=== PATIENT | female | born 1960 | race Native Hawaiian/Other Pacific Islander ===

== ENCOUNTER 2022-01-23 14:26 | Inpatient (IN) | payer SELFPAY ==
[~2022-01-23] VITALS: Ht 157.5 cm; Wt 71.4 kg
[2022-01-23 15:54] LABS: BASOPHILS % (AUTO) 0 % (0-10); EOSINOPHILS # (AUTO) 0.1 10^3/uL (0.0-0.3); EOSINOPHILS % (AUTO) 1 % (0-10); HEMATOCRIT 33 % (35-52); HEMOGLOBIN 11.1 g/dL (11.5-16.0); LYMPHOCYTES # (AUTO) 1.7 10^3/uL (1.0-4.0); LYMPHOCYTES % (AUTO) 10 % (12-44); MEAN CORPUSCULAR HEMOGLOBIN 29 pg (25-34); MEAN CORPUSCULAR HGB CONC 33 g/dL (32-36); MEAN CORPUSCULAR VOLUME 87 fL (80-99); MEAN PLATELET VOLUME 10.3 fL (9.0-12.2); MONOCYTES # (AUTO) 0.9 10^3/uL (0.0-1.0); MONOCYTES % (AUTO) 5 % (0-12); NEUTROPHILS # (AUTO) 14.9 10^3/uL (1.8-7.8); NEUTROPHILS % (AUTO) 83 % (42-75); PLATELET COUNT 447 10^3/uL (130-400); WHITE BLOOD COUNT 17.9 10^3/uL (4.3-11.0)
--- NOTE | 2022-01-23 15:54 | ED GI ---
General Chief Complaint: Dizziness/Syncope Stated Complaint: DIZZY, BODYACHES, HEADACHE Nursing Triage Note: pt ambulatory to room. pt states she has had headache, dizziness, abdomen pain "all over for two weeks and states all symptoms "come and go." pt also reports body aches and constantly having to "switch positions to have comfort." pt also reports not having a bowel movement for 4-5 days but has been passing gas Source of Information: Patient Exam Limitations: Language Barrier (Vietnamese as a second language) History of Present Illness Date Seen by Provider: Jan 23, 2022 Time Seen by Provider: 15:35 Initial Comments Patient to the ER by private conveyance with chief complaint she is having some dizziness nausea and abdominal pain off and on getting worse over the past week. She has had some subjective fevers and chills. She does not follow with a doctor nor does she have any medical problems that she is aware of. She does not have diarrhea but she is having some dysuria. She has not taken anything for the pain. She says the dizziness is worse when she lays down at night. No sore throat cough . Allergies and Home Medications Allergies Coded Allergies: No Known Drug Allergies (Unverified , 01/23/22) Patient Home Medication List Home Medication List Reviewed: Yes Review of Systems Review of Systems Constitutional: No chills, No diaphoresis EENTM: No Blurred Vision, No Double Vision Respiratory: Denies Cough, Denies Shortness of Air Cardiovascular: Denies Chest Pain, Denies Lightheadedness Gastrointestinal: See HPI, Abdominal Pain (Suprapubic); Denies Constipated, Denies Diarrhea; Nausea, Poor Fluid Intake; Denies Vomiting All Other Systems Reviewed Negative Unless Noted: Yes Past Mdorudw-Mryfmb-Bgjvtu Hx Patient Social History Tobacco Use?: No Use of E-Cig and/or Vaping dev: Yes E-Cig or Vaping type used: Nicotine Substance use?: No Alcohol Use?: No Physical Exam Vital Signs Vital Signs - First Documented 01/23/22 15:06 Temp 36.6 Pulse 105 Resp 16 B/P (MAP) 140/75 (96) Pulse Ox 98 Capillary Refill : Height/Weight/BMI Height: '" Weight: lbs. oz. kg; 29.00 BMI Method: General Appearance: WD/WN, mild distress HEENT: PERRL/EOMI, TMs normal (Otosclerosis bilaterally and small amount of clear effusion without bulging or loss of the tympanic membrane landmarks. No erythema or injection. Nontender to manipulation.), pharynx normal Neck: full range of motion, normal inspection Respiratory: lungs clear, normal breath sounds, no respiratory distress, no accessory muscle use Cardiovascular: normal peripheral pulses, regular rate, rhythm, tachycardia (105) Gastrointestinal: normal bowel sounds, soft, tenderness (Suprapubic region) Extremities: non-tender, normal inspection, normal capillary refill Neurologic/Psychiatric: alert, normal mood/affect, oriented x 3 Skin: normal color, warm/dry Focused Exam Sepsis Stage: Sepsis Possible Source: Genitouriary Lactate Level 01/23/22 17:38: Lactic Acid Level 1.54 Time of Focused Exam: 18:30 Respiratory: Lungs Clear, Normal Breath Sounds, No Accessory Muscle Use, No Respiratory Distress Cardiovascular: Regular Rate, Rhythm, No Edema, Normal Peripheral Pulses, Tachycardia (110) Capillary Refill: Less Than 3 Seconds Peripheral Pulses: 2+ Radial Pulses (R), 2+ Radial Pulses (L) Skin: normal color, warm/dry Lactic Acid Level Laboratory Tests Test 01/23/22 17:38 Lactic Acid Level 1.54 MMOL/L (0.50-2.00) Within 3hrs of presentation: Admin fluids, Admin ABX, Blood cultures prior to ABX's, Focus exam, Lactate level Progress/Results/Core Measures Results/Orders Lab Results Laboratory Tests Test 01/23/22 15:22 01/23/22 15:59 01/23/22 17:38 Range/Units White Blood Count 17.9 H 4.3-11.0 10^3/uL Red Blood Count 3.84 3.80-5.11 10^6/uL Hemoglobin 11.1 L 11.5-16.0 g/dL Hematocrit 33 L 35-52 % Mean Corpuscular Volume 87 80-99 fL Mean Corpuscular Hemoglobin 29 25-34 pg Mean Corpuscular Hemoglobin Concent 33 32-36 g/dL Red Cell Distribution Width 12.4 10.0-14.5 % Platelet Count 447 H 130-400 10^3/uL Mean Platelet Volume 10.3 9.0-12.2 fL Immature Granulocyte % (Auto) 1 % Neutrophils (%) (Auto) 83 H 42-75 % Lymphocytes (%) (Auto) 10 L 12-44 % Monocytes (%) (Auto) 5 0-12 % Eosinophils (%) (Auto) 1 0-10 % Basophils (%) (Auto) 0 0-10 % Neutrophils # (Auto) 14.9 H 1.8-7.8 10^3/uL Lymphocytes # (Auto) 1.7 1.0-4.0 10^3/uL Monocytes # (Auto) 0.9 0.0-1.0 10^3/uL Eosinophils # (Auto) 0.1 0.0-0.3 10^3/uL Basophils # (Auto) 0.0 0.0-0.1 10^3/uL Immature Granulocyte # (Auto) 0.2 H 0.0-0.1 10^3/uL Neutrophils % (Manual) 78 % Lymphocytes % (Manual) 10 % Monocytes % (Manual) 9 % Eosinophils % (Manual) 2 % Band Neutrophils 1 % Blood Morphology Comment NORMAL Prothrombin Time 13.6 12.2-14.7 SEC INR Comment 1.0 0.8-1.4 Activated Partial Thromboplast Time 38 H 24-35 SEC Sodium Level 131 L 135-145 MMOL/L Potassium Level 4.1 3.6-5.0 MMOL/L Chloride Level 94 L 98-107 MMOL/L Carbon Dioxide Level 26 21-32 MMOL/L Anion Gap 11 5-14 MMOL/L Blood Urea Nitrogen 10 7-18 MG/DL Creatinine 0.78 0.60-1.30 MG/DL Estimat Glomerular Filtration Rate 87 BUN/Creatinine Ratio 13 Glucose Level 291 H 70-105 MG/DL Calcium Level 9.2 8.5-10.1 MG/DL Corrected Calcium 9.8 8.5-10.1 MG/DL Total Bilirubin 1.3 H 0.1-1.0 MG/DL Aspartate Amino Transf (AST/SGOT) 30 5-34 U/L Alanine Aminotransferase (ALT/SGPT) 44 0-55 U/L Alkaline Phosphatase 430 H 40-136 U/L C-Reactive Protein High Sensitivity 22.24 H 0.00-0.50 MG/DL Total Protein 8.0 6.4-8.2 GM/DL Albumin 3.2 3.2-4.5 GM/DL Lipase 50 8-78 U/L Influenza Type A (RT-PCR) Not Detected Not Detecte Influenza Type B (RT-PCR) Not Detected Not Detecte SARS-CoV-2 RNA (RT-PCR) Not Detected Not Detecte Urine Color YELLOW Urine Clarity CLEAR Urine pH 5.5 5-9 Urine Specific [place] 1.015 L 1.016-1.022 Urine Protein TRACE H NEGATIVE Urine Glucose (UA) 3+ H NEGATIVE Urine Ketones 1+ H NEGATIVE Urine Nitrite POSITIVE H NEGATIVE Urine Bilirubin NEGATIVE NEGATIVE Urine Urobilinogen 4.0 < = 1.0 MG/DL Urine Leukocyte Esterase 1+ H NEGATIVE Urine RBC (Auto) 1+ H NEGATIVE Urine RBC NONE /HPF Urine WBC 10-25 H /HPF Urine Squamous Epithelial Cells 2-5 /HPF Urine Renal Epithelial Cells NONE /HPF Urine Crystals NONE /LPF Urine Bacteria LARGE H /HPF Urine Casts NONE /LPF Urine Mucus NEGATIVE /LPF Urine Culture Indicated YES Lactic Acid Level 1.54 0.50-2.00 MMOL/L My Orders Orders - EDSON WELCH Orthostatic Vital Signs (Adult (01/23/22 15:32) Covid 19 Inhouse Test (01/23/22 15:32) Influenza A And B By Pcr (01/23/22 15:32) Ed Iv/Invasive Line Start (01/23/22 15:45) Ed Iv/Invasive Line Start (01/23/22 15:47) Lactated Ringers (Lr 1000 Ml Iv Solution (01/23/22 16:00) Ua Culture If Indicated (01/23/22 15:47) Cbc With Automated Diff (01/23/22 15:47) Comprehensive Metabolic Panel (01/23/22 15:47) Hs C Reactive Protein (01/23/22 15:47) Lipase (01/23/22 15:47) Manual Differential (01/23/22 15:22) Urine Culture (01/23/22 15:59) Ct Abdomen/Pelvis W (01/23/22 17:22) Ed Iv/Invasive Line Start (01/23/22 17:24) Lactated Ringers (Lr 1000 Ml Iv Solution (01/23/22 17:30) Blood Culture (01/23/22 17:27) Protime With Inr (01/23/22 17:27) Partial Thromboplastin Time (01/23/22 17:27) Chest 1 View, Ap/Pa Only (01/23/22 17:27) Ed Iv/Invasive Line Start (01/23/22 17:27) Ed Iv/Invasive Line Start (01/23/22 17:27) Vital Signs Adult Sepsis Patie Q15M (01/23/22 17:27) O2 (01/23/22 17:27) Remove Rings In Anticipation O (01/23/22 17:27) Lactic Acid Analyzer (01/23/22 17:27) Ceftriaxone 1 Gm Pre-Mix (Rocephin 1 Gm (01/23/22 17:30) Iohexol Injection (Omnipaque 350 Mg/Ml 1 (01/23/22 17:30) Received Contrast (Hold Metformin- Contr (01/23/22 17:30) Sodium Chloride Flush (Catheter Flush Sy (01/23/22 17:30) Ns (Ivpb) (Sodium Chloride 0.9% Ivpb Bag (01/23/22 17:30) Medications Given in ED Current Medications Medications Dose Ordered Sig/Madeleine Route Start Time Stop Time Status Last Admin Dose Admin Ceftriaxone Sodium/Dextrose 50 ml @ 100 mls/hr ONCE ONCE IV 01/23/22 17:30 01/23/22 17:59 DC 01/23/22 18:08 100 MLS/HR Iohexol 100 ml ONCE ONCE IV 01/23/22 17:30 01/23/22 17:31 DC 01/23/22 17:45 80 ML Lactated Ringer's 1,000 ml @ 0 mls/hr Q0M ONCE IV 01/23/22 16:00 01/23/22 16:01 DC 01/23/22 16:02 999 MLS/HR Lactated Ringer's 1,000 ml @ 0 mls/hr Q0M ONCE IV 01/23/22 17:30 01/23/22 17:31 DC 01/23/22 18:08 999 MLS/HR Sodium Chloride 10 ml NEEDED PRN IV 01/23/22 17:30 01/23/22 17:46 10 ML Sodium Chloride 100 ml ONCE ONCE IV 01/23/22 17:30 01/23/22 17:31 DC 01/23/22 17:45 75 ML Vital Signs/I&O 01/23/22 15:06 Temp 36.6 Pulse 105 Resp 16 B/P (MAP) 140/75 (96) Pulse Ox 98 Blood Pressure Mean: 96 Progress Progress Note #1: Time: 15:52 Progress Note We will give her some Zofran for nausea check a urine labs and give her a liter of fluids. COVID and influenza swabs. Progress Note #2: Time: 17:28 Progress Note On reexamination the patient is feeling much better no longer having nausea or pain. Her heart rate is still 103. She meets septic criteria so we initiated sepsis work-up, blood cultures, lactate, 2 L of fluid which is between 20 and 30 mL/kg and Rocephin for presumed UTI. Because of her elevated alkaline phosphatase and bilirubin which are marginally elevated we will going get a CT and make sure there is no other pathology such as gallbladder, ureteral stone et c. Patient agrees to this as well as she is okay with staying in the hospital for a couple days. Diagnostic Imaging Diagonstic Imaging: Xray Plain Films/CT/US/NM/MRI: chest Comments [facility] [place], [place] NAME: KWESI ZIMMER [facility] REC#: [id number] PT STATUS: REG ER : 1960 PHYSICIAN: EDSON WELCH MD ADMIT DATE: 01/23/22/ER Signed Date of Exam:01/23/22 CHEST 1 VIEW, AP/PA ONLY INDICATION: Head pain, dizziness. FINDINGS: The lungs are clear. There is no failure, effusion or pneumothorax. There is no free air beneath the diaphragms. IMPRESSION: Unremarkable frontal chest Dictated by: Dictated on workstation # [id number] Dict: 01/23/221800 Trans: 01/23/221807 [facility] [id number] Interpreted by: VERA MELGOZA Electronically signed by: VERA MELGOZA 01/23/221807 Reviewed: Reviewed by Me Diagonstic Imaging: CT Plain Films/CT/US/NM/MRI: abdomen, pelvis [facility] [place] [place] NAME: KWESI ZIMMER [facility] REC#: [id number] PT STATUS: REG ER : 1960 PHYSICIAN: EDSON WELCH MD ADMIT DATE: 01/23/22/ER Signed Date of Exam:01/23/22 CT ABDOMEN/PELVIS W PROCEDURE: CT abdomen and pelvis with contrast. TECHNIQUE: Multiple contiguous axial images were obtained through the abdomen and pelvis after administration of intravenous contrast. Auto Exposure Controls were utilized during the CT exam to meet ALARA standards for radiation dose reduction. All CT scans use one or more of the following dose optimizing techniques: automated exposure control, MA and/or KvP adjustment based on patient size and exam type or iterative reconstruction. INDICATION: Head pain, dizziness, abdominal pain, constipation. COMPARISON: No relevant comparison. FINDINGS: The left kidney is mildly enlarged and shows patchy heterogeneous enhancement when compared to the right and there is mild stranding of the left perinephric fat as well as slight left-sided urothelial thickening. The pattern is most suggestive of pyelonephritis, correlate clinically. There is no evidence for renal abscess. No stone. No hydronephrosis. The urinary bladder is also mildly thickened and its inflammation or infection is suspected as well. The unobstructed right kidney and its ureter appeared normal. No subcapsular or perinephric fluid collection. There is no finding of an abscess. This patient has multiple gallstones but no features suggestive of acute cholecystitis. The biliary ducts are nondilated. Spleen, adrenals, and pancreas are negative. There are aortoiliac atherosclerotic vascular calcifications without aneurysm. There is a normal appendix. There are few noninflamed sigmoid diverticula. Uterus and adnexa appeared normal. IMPRESSION: 1. Findings are most suggestive of left-sided pyelonephritis without stone, obstruction, or abscess with suspicion for superimposed cystitis of the urinary bladder as well. 2. Cholelithiasis but no findings felt suggestive of acute cholecystitis. 3. Nonobstructive bowel gas pattern with mild noninflamed sigmoid diverticulosis and a normal appendix. Dictated by: Dictated on workstation # [id number] Dict: 01/23/22 1750 Trans: 01/23/22 1800 AS6 [id number] Interpreted by: VERA MELGOZA Electronically signed by: VERA MELGOZA 01/23/22 1800 Reviewed: Reviewed by Me Departure Communication (Admissions) Time/Spoke to Admitting Phy: 18:29 Discussed the case with Dr. Barron who agrees with Rocephin, fluids and pain and nausea meds on the floor. Impression Primary Impression: UTI (urinary tract infection) Qualified Codes: N30.01 - Acute cystitis with hematuria Additional Impression: Sepsis Qualified Codes: A41.9 - Sepsis, unspecified organism Disposition: ADMITTED INPATIENT Condition: Stable Admissions Decision to Admit Reason: Admit from ER (General) Decision to Admit/Date: Jan 23, 2022 Time/Decision to Admit Time: 17:30 Departure-Patient Inst. Referrals: NO,LOCAL PHYSICIAN (PCP) Primary Care Physician EDSON WELCH Jan 23, 2022 15:54
[2022-01-23 15:58] VITALS: BP_SYST 106; BP_SYST 114; BP_SYST 121; BP_DIAS 64; BP_DIAS 69; BP_DIAS 80
[2022-01-23] MEDS ORDERED: LACTATED RINGERS 1,000 ML IV ONE ×3 (16:00→20:11)
[2022-01-23 16:05] LABS: BILIRUBIN,URINE NEGATIVE (NEGATIVE); CLARITY,URINE CLEAR; COLOR,URINE YELLOW; GLUCOSE, URINE (UA) 3+ (NEGATIVE); KETONES,URINE 1+ (NEGATIVE); LEUKOCYTE ESTERASE ,URINE 1+ (NEGATIVE); NITRITE,URINE POSITIVE (NEGATIVE); PH,URINE 5.5 (5-9); PROTEIN,URINE TRACE (NEGATIVE)
[2022-01-23 16:06] LABS: ALBUMIN 3.2 GM/DL (3.2-4.5); POTASSIUM 4.1 MMOL/L (3.6-5.0)
[2022-01-23 16:07] LABS: CALCIUM 9.2 MG/DL (8.5-10.1)
[2022-01-23 16:09] LABS: BAND NEUTROPHILS 1 %; NEUTROPHILS % (MANUAL) 78 %
[2022-01-23 16:10] LABS: BILIRUBIN,TOTAL 1.3 MG/DL (0.1-1.0); EOSINOPHILS % (MANUAL) 2 %; LYMPHOCYTES % (MANUAL) 10 %; MONOCYTES % (MANUAL) 9 %; RBC MORPH NORMAL
[2022-01-23 16:12] LABS: CREATININE SERUM 0.78 MG/DL (0.60-1.30)
[2022-01-23 16:13] LABS: BACTERIA,URINE LARGE /HPF
[2022-01-23 17:27] VITALS: BP 119/60
[2022-01-23] MEDS ORDERED: HOLD METFORMIN - RECEIVED CONTRAST 20 ML VIAL IV SCH (17:30)
[2022-01-23] MEDS ORDERED: NS 100 ML (IVPB) BAG IV ONE (17:30)
[2022-01-23] MEDS ORDERED: cefTRIAXone 1 GM PRE-MIX 50 ML IV ONE (17:30)
[2022-01-23] MEDS ORDERED: CATHETER FLUSH 10 ML SYR IV PRN (17:30)
[2022-01-23] MEDS ORDERED: IOHEXOL 350 MG/ML 100 ML (OMNIPAQUE 350) VIAL IV ONE (17:30)
[2022-01-23 17:45] LABS: PROTHROMBIN TIME PATIENT 13.6 SEC (12.2-14.7)
--- NOTE | 2022-01-23 18:00 | Diagnostic Imaging Report ---
PROCEDURE: CT abdomen and pelvis with contrast. TECHNIQUE: Multiple contiguous axial images were obtained through the abdomen and pelvis after administration of intravenous contrast. Auto Exposure Controls were utilized during the CT exam to meet ALARA standards for radiation dose reduction. All CT scans use one or more of the following dose optimizing techniques: automated exposure control, MA and/or KvP adjustment based on patient size and exam type or iterative reconstruction. INDICATION: Head pain, dizziness, abdominal pain, constipation. COMPARISON: No relevant comparison. FINDINGS: The left kidney is mildly enlarged and shows patchy heterogeneous enhancement when compared to the right and there is mild stranding of the left perinephric fat as well as slight left-sided urothelial thickening. The pattern is most suggestive of pyelonephritis, correlate clinically. There is no evidence for renal abscess. No stone. No hydronephrosis. The urinary bladder is also mildly thickened and its inflammation or infection is suspected as well. The unobstructed right kidney and its ureter appeared normal. No subcapsular or perinephric fluid collection. There is no finding of an abscess. This patient has multiple gallstones but no features suggestive of acute cholecystitis. The biliary ducts are nondilated. Spleen, adrenals, and pancreas are negative. There are aortoiliac atherosclerotic vascular calcifications without aneurysm. There is a normal appendix. There are few noninflamed sigmoid diverticula. Uterus and adnexa appeared normal. IMPRESSION: 1. Findings are most suggestive of left-sided pyelonephritis without stone, obstruction, or abscess with suspicion for superimposed cystitis of the urinary bladder as well. 2. Cholelithiasis but no findings felt suggestive of acute cholecystitis. 3. Nonobstructive bowel gas pattern with mild noninflamed sigmoid diverticulosis and a normal appendix. Dictated by: Dictated on workstation # [id number]
--- NOTE | 2022-01-23 18:03 | Diagnostic Imaging Report ---
INDICATION: Head pain, dizziness. FINDINGS: The lungs are clear. There is no failure, effusion or pneumothorax. There is no free air beneath the diaphragms. IMPRESSION: Unremarkable frontal chest Dictated by: Dictated on workstation # [id number]
[2022-01-23 20:11] VITALS: BP 119/60
[2022-01-23] MEDS ORDERED: fentaNYL INJ 100 MCG/2 ML AMP IV PRN (21:45)
[2022-01-23] MEDS ORDERED: KETOROLAC 30 MG/ML VIAL IV PRN (21:45)
[2022-01-23] MEDS ORDERED: HYDROcodone/APAP 5 MG/325 MG (LORTAB) TAB PO PRN (21:45)
[2022-01-23] MEDS ORDERED: ACETAMINOPHEN 325 MG TABLET PO PRN (21:45)
[2022-01-24] VITALS (7 sets, daily range): BP systolic 123–137; BP diastolic 55–72
[2022-01-24] MEDS: LACTATED RINGERS 1,000 ML IV SCH ×3 (03:54→12:32)
[2022-01-24 05:40] LABS: BASOPHILS # (AUTO) 0.1 10^3/uL (0.0-0.1); BASOPHILS % (AUTO) 0 % (0-10); EOSINOPHILS # (AUTO) 0.1 10^3/uL (0.0-0.3); EOSINOPHILS % (AUTO) 1 % (0-10); HEMATOCRIT 30 % (35-52); HEMOGLOBIN 9.7 g/dL (11.5-16.0); LYMPHOCYTES # (AUTO) 1.9 10^3/uL (1.0-4.0); LYMPHOCYTES % (AUTO) 9 % (12-44); MEAN CORPUSCULAR HEMOGLOBIN 28 pg (25-34); MEAN CORPUSCULAR HGB CONC 33 g/dL (32-36); MEAN CORPUSCULAR VOLUME 87 fL (80-99); MONOCYTES # (AUTO) 0.8 10^3/uL (0.0-1.0); MONOCYTES % (AUTO) 4 % (0-12); NEUTROPHILS # (AUTO) 17.8 10^3/uL (1.8-7.8); NEUTROPHILS % (AUTO) 86 % (42-75); PLATELET COUNT 396 10^3/uL (130-400); WHITE BLOOD COUNT 20.8 10^3/uL (4.3-11.0)
[2022-01-24 05:56] LABS: POTASSIUM 3.9 MMOL/L (3.6-5.0)
[2022-01-24 05:57] LABS: CALCIUM 8.6 MG/DL (8.5-10.1)
[2022-01-24 06:02] LABS: CREATININE SERUM 0.74 MG/DL (0.60-1.30)
--- NOTE | 2022-01-24 12:30 | History & Physical ---
NARCISO TELLO 01/24/22 1230: History of Present Illness History of Present Illness Reason for visit/HPI Jenny Hernandez is a 61 yo F presenting to the ED with headache and dizziness. She also complains of discolored orange urine and painful urination. All of these symptoms have lasted for approximately 2 weeks. Pt reports having a fever with chills. She has diffuse abdominal pain that cannot be localized to one quadrant or side. She has never had this pain before. Pt reports 5/10 pain this morning. She reports increased urinary frequency. Date of Admission Jan 23, 2022 at 18:33 I consulted on this patient on 01/24/22 12:25 Attending Physician No,Local Physician Admitting Physician Admitting Physician: Mandy Barron MD Attending Physician: Mandy Barron MD Consult Allergies and Home Medications Allergies Coded Allergies: No Known Drug Allergies (Unverified , 01/23/22) Patient Home Medication List Home Medication List Reviewed: Yes No Active Prescriptions or Reported Meds Past Khchage-Lodyys-Xvobbg Hx Patient Social History Tobacco Use?: Yes Smokeless type used: Chew Smokeless Tobacco Frequency: Current Everyday User Use of E-Cig and/or Vaping dev: Yes E-Cig or Vaping type used: Nicotine Use of E-Cig and/or Vaping Doroteo: Current Everyday User Substance use?: No Alcohol Use?: No Pt feels they are or have been: Unable to obtain Seasonal Allergies Seasonal Allergies: No Current Status Advance Directives: Unable to obtain Communicates: Verbally Preferred Spoken Language: martialese Is interpretation needed?: No Family Medical History Cancer (mother had breast cancer), Diabetes (father T2DM) Review of Systems Constitutional: chills, dizziness EENTM: No vision loss, No hoarseness Respiratory: No cough, No short of breath Cardiovascular: No chest pain, No edema Gastrointestinal: abdominal pain (diffuse to all 4 quadrants); No jaundice, No nausea, No vomiting Genitourinary: dysuria, frequency, hematuria, pain Musculoskeletal: back pain, muscle pain Skin: No change in color, No hx of skin cancer Psychiatric/Neurological: Headache; Denies Seizure, Denies Tremors Physical Exam Vital Signs Vital Signs - First Documented 01/23/22 01/23/22 15:06 17:27 Temp 36.6 Pulse 105 Resp 16 B/P (MAP) 140/75 (96) Pulse Ox 98 O2 Delivery Room Air Capillary Refill : Less Than 3 Seconds Height, Weight, BMI Height: '" Weight: lbs. oz. kg; 28.78 BMI Method: General Appearance: No Apparent Distress, WD/WN HEENT: PERRL/EOMI, Moist Mucous Membranes; No Scleral Icterus (L), No Scleral Icterus (R) Neck: Full Range of Motion, Normal Inspection; No JVD Respiratory: Chest Non Tender, Lungs Clear, Normal Breath Sounds, No Accessory Muscle Use, No Respiratory Distress Cardiovascular: Regular Rate, Rhythm, No Edema, No Gallop, No JVD, No Murmur, Normal Peripheral Pulses Gastrointestinal: Normal Bowel Sounds, No Organomegaly, No Pulsatile Mass, Soft, Tenderness Rectal: Deferred Back: CVA Tenderness (L), CVA Tenderness (R) Extremity: Normal Capillary Refill, Normal Inspection, Normal Range of Motion, Non Tender, No Pedal Edema Neurologic/Psychiatric: Alert, No Motor/Sensory Deficits, Normal Mood/Affect; No Disoriented Skin: Normal Color, Warm/Dry; No Jaundice Assessment/Plan Assessment and Plan UTI- sepsis from pyelonephritis Continue ceftriaxone IV 1g per day monitor for signs of septic shock- hypotension or end organ damage Elevated Glucose continue to check, sliding scale insulin, begin metformin once discharged, HgA1c ordered Pain 650 mg of acetaminophen q6hr prn pain Ketorolac 30 mg q3hr prn pain Fentanyl 50 mcg q2hr prn pain Lortab 5mg q6hr prn pain Admission Diagnosis Admission Status: Inpatient Order (span 2 midnights) Reason for Inpatient Admission: sepsis with pyelonephritis MANDY BARRON MD 01/24/22 1351: History of Present Illness History of Present Illness Time Seen by a Provider: 11:50 Allergies and Home Medications Allergies Coded Allergies: No Known Drug Allergies (Unverified , 01/23/22) Patient Home Medication List No Active Prescriptions or Reported Meds Assessment/Plan Assessment and Plan Patient is a 61-year-old female who was admitted to the hospital secondary to sepsis due to pyelonephritis. She complained of abdominal pain and chills but had no objective fever. She was found to have a urinary tract infection and due to her abdominal pain a CT of her abdomen was done in the emergency department. This revealed left-sided pyelonephritis and cystitis. She was admitted for IV antibiotics and is feeling much better this afternoon. She was eating lunch when I saw her and denied any abdominal pain. We will continue her on IV antibiotics and await her blood cultures which are positive at the moment for gram-negative rods. Her urine culture has probable E. coli. She has no previous cultures on file here. She was incidentally found to have a very elevated blood sugar 295 this morning. I discussed these findings with her and we will start her on sliding scale insulin and obtain an A1c. She very likely has undiagnosed diabetes and would benefit from metformin on discharge but given her GI upset and abdominal pain we will defer this at this time. Supervisory-Addendum Brief Verification & Attestation Participated in pt care: history, MDM, physical Personally performed: exam, history, MDM, supervision of care Care discussed with: Medical Student Procedures: n/a Results interpretation: Verified all documentation Verification and Attestation of Medical Student E/M Service A medical student performed and documented this service in my presence. I reviewed and verified all information documented by the medical student and made modifications to such information, when appropriate. I personally performed the physical exam and medical decision making. Mandy Barron, Jan 25, 2022,14:42 NARCISO TELLO Jan 24, 2022 12:30 MANDY BARRON MD Jan 24, 2022 13:51
[2022-01-24] MEDS ORDERED: inSUlin ASPART (NovoLOG) 1 UNIT/0.01 ML (CHARGE PER UNIT) SC SCH (16:00)
[2022-01-24] MEDS: cefTRIAXone 1 GM/50 ML (PRE-MIX) IV SCH (18:00)
[2022-01-24] MEDS: inSUlin ASPART (NovoLOG) 1 UNIT/0.01 ML (CHARGE PER UNIT) SC SCH (20:25)
[2022-01-25 03:18] VITALS: BP 132/70
[2022-01-25] MEDS: inSUlin ASPART (NovoLOG) 1 UNIT/0.01 ML (CHARGE PER UNIT) SC SCH ×4 (05:29→20:34)
[2022-01-25 06:22] LABS: HEMATOCRIT 30 % (35-52); HEMOGLOBIN 9.8 g/dL (11.5-16.0); MEAN CORPUSCULAR HEMOGLOBIN 29 pg (25-34); MEAN CORPUSCULAR HGB CONC 33 g/dL (32-36); MEAN CORPUSCULAR VOLUME 87 fL (80-99); MEAN PLATELET VOLUME 9.6 fL (9.0-12.2); PLATELET COUNT 360 10^3/uL (130-400)
[2022-01-25 06:32] LABS: POTASSIUM 3.8 MMOL/L (3.6-5.0)
[2022-01-25 06:33] LABS: CALCIUM 8.6 MG/DL (8.5-10.1)
[2022-01-25 06:38] LABS: CREATININE SERUM 0.79 MG/DL (0.60-1.30)
[2022-01-25 07:46] VITALS: BP 103/67
[2022-01-25 11:24] VITALS: BP 128/79
--- NOTE | 2022-01-25 15:38 | Progress Note ---
NARCISO TELLO 01/25/22 1537: Subjective Subjective/Events-last exam Jenny Hernandez is a 61F who presented 01/23 with dysuria increased frequency. Diagnosis after urine culture, CT, and labs is consistent with Pyelonephritis and Cystitis. I saw her this morning at 8:45 and she said she felt better than she did yesterday. Her abdominal and back tenderness is better as well as her dizziness and headaches. Pt reports her urine still has an orange tint. She is eating and has no N/V/D. Reports last BM was 4 days ago. Pt still reports mild suprapubic tenderness. Pt reports no fevers or chills overnight, WBC count down from 20 to 12. Review of Systems General: No Chills, No Night Sweats HEENT: No Head Aches, No Dysphasia Pulmonary: No Dyspnea, No Cough Cardiovascular: No: Chest Pain, Edema Gastrointestinal: No: Nausea, Vomiting, Diarrhea Genitourinary: Dysuria; No Retention Musculoskeletal: back pain Neurological: No: Weakness, Change in speech Focused Exam Sepsis Stage: Sepsis Possible Source: Genitouriary Lactate Level 01/23/22 17:38: Lactic Acid Level 1.54 Time of Focused Exam: 18:30 Respiratory: Chest Non Tender, Lungs Clear, Normal Breath Sounds, No Accessory Muscle Use, No Respiratory Distress Cardiovascular: Regular Rate, Rhythm, No Edema, No Gallop, No JVD, No Murmur, Normal Peripheral Pulses Peripheral Pulses: 2+ Radial Pulses (R), 2+ Radial Pulses (L) Skin: normal color, warm/dry; No cyanosis, No jaundice Objective Exam Last Set of Vital Signs Vital Signs Date Time Temp Pulse Resp B/P (MAP) Pulse Ox O2 Delivery O2 Flow Rate FiO2 01/25/22 11:24 36.5 95 18 128/79 (95) 97 Room Air Capillary Refill : Less Than 3 Seconds I&O Intake and Output 01/25/22 00:00 Intake Total 3510 ml Output Total 1750 ml Balance 1760 ml Intake Oral 2260 ml IV Total 1250 ml Output Urine Total 1750 ml # Voids 3 General: Alert, Oriented X3, Cooperative, No Acute Distress HEENT: Atraumatic, EOMI Neck: Supple, No JVD Lungs: Clear to Auscultation, Normal Air Movement Heart: Regular Rate, Normal S1, Normal S2, No Murmurs Abdomen: Normal Bowel Sounds, No Tenderness, No Masses Extremities: No Clubbing, No Cyanosis, No Edema, Normal Pulses Skin: No Rashes, No Significant Lesion Neuro: Normal Speech, Normal Tone Psych/Mental Status: Mental Status NL, Mood NL Results Lab Laboratory Tests 01/24/22 16:13: Glucometer 436*H 01/24/22 20:13: Glucometer 358H 01/25/22 05:25: Glucometer 253H 01/25/22 06:00: White Blood Count 12.0H, Red Blood Count 3.40L, Hemoglobin 9.8L, Hematocrit 30L, Mean Corpuscular Volume 87, Mean Corpuscular Hemoglobin 29, Mean Corpuscular Hemoglobin Concent 33, Red Cell Distribution Width 12.2, Platelet Count 360, Mean Platelet Volume 9.6, Sodium Level 136, Potassium Level 3.8, Chloride Level 101, Carbon Dioxide Level 24, Anion Gap 11, Blood Urea Nitrogen 6L, Creatinine 0.79, Estimat Glomerular Filtration Rate 86, BUN/Creatinine Ratio 8, Glucose Level 242H, Calcium Level 8.6 01/25/22 10:57: Glucometer 320H Microbiology 01/23/22 Blood Culture - Preliminary, Resulted Gram Negative Bacillus 1 01/23/22 Urine Culture - Final, Complete Escherichia coli Assessment/Plan Assessment/Plan Assess & Plan/Chief Complaint Sepsis due to pyelonephritis Hyperglycemia Plan: Continue 1g ceftriaxone per day IV switch to oral medication upon discharge, probably Keflex Continue sliding scale insulin Glucose remained high at 242 HgA1c came back at 12 Metformin for DM and follow up outpatient to learn more about monitoring her glucose and dietary/lifestyle modifications Clinical Quality Measures Admission Status Admission Dx UTI- sepsis from pyelonephritis Continue ceftriaxone IV 1g per day monitor for signs of septic shock- hypotension or end organ damage Elevated Glucose continue to check, sliding scale insulin, begin metformin once discharged, HgA1c ordered Pain 650 mg of acetaminophen q6hr prn pain Ketorolac 30 mg q3hr prn pain Fentanyl 50 mcg q2hr prn pain Lortab 5mg q6hr prn pain DVT prophylaxis 40mg lovenox MANDY BARRON MD 01/25/22 1630: Assessment/Plan Assessment/Plan Assess & Plan/Chief Complaint Pt reports feeling much better. Urine cultures with E. coli and blood culture still pending though do have gram-negative rods in multiple tubes. This is likely E. coli but will await sensitivities prior to discharge. Her A1c did come back at 12.8 consistent with newly diagnosed and uncontrolled diabetes. We will start her on Levemir tonight and will consult education and dietitian to assist with this new diagnosis. Hopefully home tomorrow if doing well and sensitivities back. Supervisory-Addendum Brief Verification & Attestation Participated in pt care: history, MDM, physical Personally performed: exam, history, MDM, supervision of care Care discussed with: Medical Student Procedures: n/a Results interpretation: Verified all documentation Verification and Attestation of Medical Student E/M Service A medical student performed and documented this service in my presence. I reviewed and verified all information documented by the medical student and made modifications to such information, when appropriate. I personally performed the physical exam and medical decision making. Mandy Barron, Jan 25, 2022,16:26 NARCISO TELLO Jan 25, 2022 15:37 MANDY BARRON MD Jan 25, 2022 16:30
[2022-01-25 16:00] VITALS: BP 139/67
[2022-01-25] MEDS: cefTRIAXone 1 GM/50 ML (PRE-MIX) IV SCH (16:52)
[2022-01-25 19:39] VITALS: BP 120/59
[2022-01-25 23:36] VITALS: BP 129/62
[2022-01-26 04:57] VITALS: BP 127/64
[2022-01-26 05:56] LABS: HEMATOCRIT 29 % (35-52); HEMOGLOBIN 9.7 g/dL (11.5-16.0); MEAN CORPUSCULAR HEMOGLOBIN 29 pg (25-34); MEAN CORPUSCULAR HGB CONC 33 g/dL (32-36); MEAN CORPUSCULAR VOLUME 88 fL (80-99); MEAN PLATELET VOLUME 9.8 fL (9.0-12.2); PLATELET COUNT 329 10^3/uL (130-400); WHITE BLOOD COUNT 10.9 10^3/uL (4.3-11.0)
[2022-01-26 06:06] LABS: CALCIUM 8.8 MG/DL (8.5-10.1)
[2022-01-26 06:10] LABS: CREATININE SERUM 0.79 MG/DL (0.60-1.30)
[2022-01-26] MEDS: inSUlin ASPART (NovoLOG) 1 UNIT/0.01 ML (CHARGE PER UNIT) SC SCH ×2 (06:10→11:39)
[2022-01-26 07:43] VITALS: BP 120/79
[2022-01-26 11:21] VITALS: BP 107/72
[2022-01-26] MEDS ORDERED: INSU100I14 SQ (12:02)
[2022-01-26] MEDS ORDERED: INSU100I29 SQ (12:02)
[2022-01-26] MEDS ORDERED: CEPH500T PO (12:02)
--- NOTE | 2022-01-26 12:03 | Discharge Inst-Simple/Standard ---
Discharge Inst-Standard Discharge Medications New, Converted or Re-Newed RX: Transmitted to Pharmacy Patient Instructions/Follow Up Plan of Care/Instructions/FU: Please continue to take your medications as written. Please follow up with your primary care doctor to follow up this hospital stay. Activity as Tolerated: Yes Discharge Diet: ADA Diet Return to The Hospital For: Chest pain, shortness of breath, fever, weakness, if you feel you are getting worse. MANDY GERMAN MD Jan 26, 2022 12:03
--- NOTE | 2022-01-26 12:06 | Discharge Summary ---
Diagnosis/Chief Complaint Date of Admission Jan 23, 2022 at 18:33 Date of Discharge Discharge Date: Jan 26, 2022 Primary Care Discharge Summary Discharge Physical Exam Allergies: Coded Allergies: No Known Drug Allergies (Unverified , 01/23/22) Vitals & I&Os Vital Signs Date Time Temp Pulse Resp B/P (MAP) Pulse Ox O2 Delivery O2 Flow Rate FiO2 01/26/22 11:21 36.4 90 18 107/72 (84) 98 Room Air General Appearance: No Apparent Distress Cardiovascular: Regular Rate, Rhythm, No Murmur Neurologic/Psychiatric: Alert, Oriented x3 Hospital Course Patient was admitted to the hospital secondary to sepsis due to pyelonephritis. She was started on IV antibiotics and did well. Her blood cultures were positive for E. coli which was consistent with her urine culture. She was transitioned to Keflex for discharge. She was found to be quite hyperglycemic and A1c was done which resulted as 12.8. This was a new diagnosis for her and she was seen by both the dietitian and patient education to assist with insulin education. bibliographic services specialist was consulted to assist with getting prescriptions outside of the hospital. She was discharged home in stable improved condition to follow-up with critical access hospital to follow-up this hospital stay. Labs (last 24 hrs) Laboratory Tests 01/25/22 15:51: Glucometer 370H 01/26/22 04:56: Glucometer 184H 01/26/22 05:45: White Blood Count 10.9, Red Blood Count 3.36L, Hemoglobin 9.7L, Hematocrit 29L, Mean Corpuscular Volume 88, Mean Corpuscular Hemoglobin 29, Mean Corpuscular Hemoglobin Concent 33, Red Cell Distribution Width 12.4, Platelet Count 329, Mean Platelet Volume 9.8, Sodium Level 138, Potassium Level 4.0, Chloride Level 102, Carbon Dioxide Level 23, Anion Gap 13, Blood Urea Nitrogen 6L, Creatinine 0.79, Estimat Glomerular Filtration Rate 86, BUN/Creatinine Ratio 8, Glucose Level 179H, Calcium Level 8.8 01/26/22 11:10: Glucometer 346H Microbiology 01/23/22 Blood Culture - Final, Complete Escherichia coli 01/23/22 Urine Culture - Final, Complete Escherichia coli Patient resulted labs reviewed. Pending Labs Laboratory Tests 01/26/22 04:56: Glucometer 184 01/26/22 05:45: White Blood Count 10.9, Red Blood Count 3.36, Hemoglobin 9.7, Hematocrit 29, Mean Corpuscular Volume 88, Mean Corpuscular Hemoglobin 29, Mean Corpuscular Hemoglobin Concent 33, Red Cell Distribution Width 12.4, Platelet Count 329, Mean Platelet Volume 9.8, Sodium Level 138, Potassium Level 4.0, Chloride Level 102, Carbon Dioxide Level 23, Anion Gap 13, Blood Urea Nitrogen 6, Creatinine 0.79, Estimat Glomerular Filtration Rate 86, BUN/Creatinine Ratio 8, Glucose Level 179, Calcium Level 8.8 01/26/22 11:10: Glucometer 346 Discussion & Recommendations Discharge Planning: >30 minutes discharge planning Discharge Home Medications: Active Scripts Active Cephalexin 500 Mg Tablet 500 Mg PO BID Novolog Flexpen (Insulin Aspart) 100 Unit/Ml (3 Ml) Solution 2 Units SQ AC Levemir Flextouch (Insulin Detemir) 100 Unit/Ml (3 Ml) Insuln.pen 10 Unit SQ HS Instructions to patient/family Please see electronic discharge instructions given to patient. Clinical Quality Measures Admission Status Admission Dx Patient is a 61-year-old female who was admitted to the hospital secondary to sepsis due to pyelonephritis. She complained of abdominal pain and chills but had no objective fever. She was found to have a urinary tract infection and due to her abdominal pain a CT of her abdomen was done in the emergency department. This revealed left-sided pyelonephritis and cystitis. She was admitted for IV antibiotics and is feeling much better this afternoon. She was eating lunch when I saw her and denied any abdominal pain. We will continue her on IV antibiotics and await her blood cultures which are positive at the moment for gram-negative rods. Her urine culture has probable E. coli. She has no previous cultures on file here. She was incidentally found to have a very peter vated blood sugar 295 this morning. I discussed these findings with her and we will start her on sliding scale insulin and obtain an A1c. She very likely has undiagnosed diabetes and would benefit from metformin on discharge but given her GI upset and abdominal pain we will defer this at this time. MANDY GERMAN MD Jan 26, 2022 12:06
[2022-01-26 13:40] VITALS: BP 107/72
== END 2022-01-26 13:40 | disposition home or self-care (01) | DRG 872 ==
LOC: ER 14:32 → 4TH 18:33
PROVIDERS: ADMIT Family Medicine; ATTEND Family Medicine
DX: A41.9 Sepsis, unspecified organism (principal); N12 Tubulo-interstitial nephritis, not specified as acute or chronic; B96.20 Unspecified Escherichia coli [E. coli] as the cause of diseases classified elsewhere; R73.9 Hyperglycemia, unspecified; F17.220 Nicotine dependence, chewing tobacco, uncomplicated
CPT/HCPCS: 36415; 71045; 74177; 80048; 80053; 81000; 82947; 83036; 83605; 83690; 85007; 85025; 85027; 85610; 85730; 86141; 87040; 87077; 87088; 87186; 87636